=== PATIENT | male | born 1980 | race Caucasian/White ===

== ENCOUNTER 2024-11-27 16:23 | Emergency (ER) | payer SELFPAY ==
--- NOTE | ~2024-11-27 | XR_ITS ---
EXAM: XR knee RT min 4V DATE: 11/27/2024 17:33 HISTORY: fell and landed on knee 2 days ago . COMPARISON: None available. FINDINGS: Decreased mineralization. Comminuted, predominantly vertically oriented fracture of the la teral patella, with 4 mm lateral displacement of the dominant fracture fragment. No other fracture de tected. No lytic or blastic lesion. Joint spaces are maintained. No erosion or periosteal change. Mod erate volume joint fluid. Anterior soft tissue swelling. IMPRESSION: Comminuted, mildly displaced right patellar fracture. Reviewed, dictated and finalized at location K.
[2024-11-27 16:48] VITALS: BP 130/80; PULSE 93; RESP 20; TEMP 36.4; O2SAT 98
--- NOTE | 2024-11-27 17:13 | ED_ITS ---
HPI - Extremity Injury (Lower) General Chief Complaint: Extremity Injury, Lower Stated Complaint: right knee injury/wound Time Seen by Provider: 11/27/24 17:13 Focused HPI: This is a 44 year old male that presents to the ER for a injury to the right knee 2 days ago. Reports he fell while running and landed on the knee. He is unable to bear weight or bend the knee without severe pain. Reports swelling. Denies fevers, redness, numbness, weakness. GENERAL: Well-appearing, well-nourished, and in no acute distress. HEAD: Normocephalic, atraumatic. CHEST: Clear to auscultation. ?No respiratory distress. HEART: Regular rate and rhythm.? NEURO: ?Alert and oriented x3. Patient screened in triage and initial orders placed.? ?Additional care and disposition to be based upon?diagnostic testing and treatment. Related Data Allergies Allergy/AdvReac Type Severity Reaction Status Date / Time PCN Allergy Unknown Unknown Uncoded 11/27/24 16:51 Review of Systems Review of Systems: All systems reviewed & are unremarkable except as noted in HPI and below PMFSH Past Medical History Medical History (Updated 11/27/24 @ 18:23 by Rina Augustine PA-C) No active medical problems Exam Narrative: GENERAL: Well-appearing, well-nourished, and in no acute distress. HEAD: Normocephalic, atraumatic. EYES: EOMI. EXTREMITIES: Decreased active ROM in the right knee. Normal DP pulse. Normal sensation SKIN: Warm, dry, no rash. NEURO: No focal deficits. Alert and oriented x3. PSYCH: Normal mood and affect Course Course Emergency Course: Patient updated on his workup and agrees with plan of care Vital Signs Vital signs: Vital Signs Temperature 97.6 F 11/27/24 16:48 Pulse Rate 93 11/27/24 16:48 Respiratory Rate 20 11/27/24 16:48 Blood Pressure 130/80 11/27/24 16:48 Pulse Oximetry 98 11/27/24 16:48 Oxygen Delivery Room Air 11/27/24 16:48 Temperature 97.6 F 11/27/24 16:48 Pulse Rate 93 11/27/24 16:48 Respiratory Rate 20 11/27/24 16:48 Blood Pressure 130/80 11/27/24 16:48 Pulse Oximetry 98 11/27/24 16:48 Oxygen Delivery Room Air 11/27/24 16:48 Procedures Orthopedic Splinting/Casting Injury #1: Splinting/Casting Date: 11/27/24 Splinting/Casting Time: 18:24 Side: right Lower Extremity Injury Location: knee Lower Extremity Immobilizer: knee immobilizer Pre-Procedure Neuro Vascular Exam: normal Post-Procedure Neuro Vascular Exam: normal Other Orthopedic Equipment: crutches MDM - Extremity Injury (Lower) MDM Narrative Medical decision making narrative: Patient presents the emergency department for right knee pain after an injury 2 days ago. Patient is neurovascularly intact. X-ray shows a comminuted, mildly displaced patellar fracture. Patient placed in knee immobilizer and given crutches. Will be given follow-up with Orthopedics. He was given warnings to return to the ER Differential Diagnosis Differential diagnosis: Likely acute internal derangement of knee and other (Patellar fracture) Imaging Data Radiologist's impression: ITS Impressions Knee X-Ray 11/27/24 17:33 IMPRESSION: Comminuted, mildly displaced right patellar fracture. Critical Care Time Critical Care Time Critical Care Time: No Discharge Plan Discharge Clinical Impression: Fracture, patella Qualifiers: Encounter type: initial encounter Fracture type: closed Fracture morphology: longitudinal Fracture alignment: displaced Laterality: right Qualified Code(s): S82.021A - Displaced longitudinal fracture of right patella, initial encounter for closed fracture Patient Disposition: Home Condition: Stable Instructions: Patellar Fracture (ED) Additional Instructions: Return to the ER if you experience fever, redness and swelling of your knee, numbness, or any other symptoms that are concerning to you Rest. Use crutches. Elevate. Ice to the area. Over the counter pain medication as needed. Prescribed pain medication as needed Follow up with orthopedics Patient Language: [place]ese Prescriptions: New hydrocodone-acetaminophen 5-325 mg tablet 1 tablet PO Q6H PRN (Reason: pain) Qty: 20 0RF Follow-up/Referrals: PHYSICIAN,SANITARIAN INSPECTOR [Primary Care Provider] - Ervin Anaya MD [Physician] - Stand Alone Forms: Work/School Release IP
[2024-11-27] MEDS: IBUPROFEN 600 MG TABLET PO (18:13)
== END 2024-11-27 18:31 | disposition home or self-care (01) ==
PROVIDERS: Emergency Provider Physician Assistant
DX: S82.021A Displaced longitudinal fracture of right patella, initial encounter for closed fracture (principal); W01.0XXA Fall on same level from slipping, tripping and stumbling without subsequent striking against object, initial encounter
CPT/HCPCS: 73564; 99284; A9270